=== PATIENT | female | born 1995 | race Caucasian/White ===

== ENCOUNTER 2018-05-07 16:49 | Inpatient (IN) | payer OTHER ==
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
[2018-05-07 17:54] LABS: Hematocrit 34 % (35-47); Hemoglobin 10.7 g/dl (12.0-16.0); Mean Corpuscular HGB Conc 32 g/dl (31-36); Mean Corpuscular Hemoglobin 24 pg (27-31); Mean Corpuscular Volume 74 fL (80-97); Mean Platelet Volume 8.1 um3 (7.4-10.4); Platelet Count 322 10^3/ul (150-450); Red Blood Count 4.57 10^6/ul (4.00-5.40); Red Cell Distribution Width 18 % (10.5-15); White Blood Count 7.7 10^3/ul (3.5-10.8)
[2018-05-07 18:00] LABS: ALT 8 U/L (7-52); AST 15 U/L (13-39); Albumin 4.7 g/dL (3.2-5.2); Albumin/Globulin Ratio 1.5 (1-3); Alkaline Phosphatase 29 U/L (34-104); Anion Gap 11 mmol/L (2-11); BUN/Creatinine Ratio 15.2 (8-20); Blood Urea Nitrogen 10 mg/dL (6-24); CO2 Carbon Dioxide 22 mmol/L (22-32); Calcium 9.4 mg/dL (8.6-10.3); Chloride 104 mmol/L (101-111); Globulin 3.2 g/dL (2-4); Glucose 88 mg/dL (70-100); Potassium 3.9 mmol/L (3.5-5.0); Sodium 137 mmol/L (135-145); Total Protein 7.9 g/dL (6.4-8.9)
[2018-05-07 18:06] LABS: HCG Pregnancy < 0.60 mIU/mL
[2018-05-07 18:25] LABS: ABS Basophils 0.1 10^3/ul (0-0.2); ABS Eosinophils 0 10^3/ul (0-0.6); ABS Lymphocytes 1.8 10^3/ul (1.0-4.8); ABS Monocytes 0.7 10^3/ul (0-0.8); ABS Neutrophils 5.1 10^3/ul (1.5-7.7); ABS Nucleated RBC 0 10^3/ul; Eosinophil % 0.3 % (0-6); Lymphocyte % 23.6 % (25-47); Nucleated Red Blood Cells % 0
[2018-05-07 19:13] LABS: Acetaminophen < 15 mcg/mL; Alcohol < 10 mg/dL (<10); Salicylate < 2.50 mg/dL (<30)
[2018-05-07 21:59] LABS: Urine Appearance Cloudy; Urine Bacteria Absent (Absent); Urine Bilirubin Negative (Negative); Urine Blood 1+ (Negative); Urine Color Yellow; Urine Glucose Negative (Negative); Urine Ketones 1+ (Negative); Urine Nitrite Negative (Negative); Urine Protein Negative (Negative); Urine Red Blood Cell 2+(6-10/hpf) (Absent); Urine Specific Gravity 1.013 (1.010-1.030); Urine Urobilinogen Positive (Negative); Urine White Blood Cell 3+(>20/hpf) (Absent)
[2018-05-07 22:05] LABS: Barbiturates Urine Screen None Detected (None Detect); Benzodiazepine Urine Screen None Detected (None Detect); Urine Cannabinoids Screen None Detected (None Detect)
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
[2018-05-07 22:34] LABS: Calcium 9.2 mg/dL (8.6-10.3); EGFR Non-African American 105.4 (>60); Potassium 3.8 mmol/L (3.5-5.0)
[2018-05-08 12:36] VITALS: BP 134/87
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
== END 2018-05-08 17:31 | disposition home or self-care (01) | DRG 882 ==
LOC: ED 16:49 → BSU 05-08 09:38
PROVIDERS: ADMIT Psychiatry & Neurology Psychiatry; ATTEND Psychiatry & Neurology Psychiatry
DX: F43.29 Adjustment disorder with other symptoms (principal); T49 Poisoning by, adverse effect of and underdosing of topical agents primarily affecting skin and mucous membrane and by ophthalmological, otorhinorlaryngological and dental drugs; Y92.009 Unspecified place in unspecified non-institutional (private) residence as the place of occurrence of the external cause; Z81.1 Family history of alcohol abuse and dependence; Z83.79 Family history of other diseases of the digestive system
CPT/HCPCS: 36415; 80048; 80053; 80307; 80320; 80329; 81003; 81015; 83605; 83930; 84702; 85025; 87086; 93005; 99238; 99284; G0480

== ENCOUNTER 2018-08-30 14:24 | Emergency (ER) | payer OTHER ==
[2018-08-30 16:32] LABS: Urine Appearance Cloudy; Urine Bilirubin Negative (Negative); Urine Blood Negative (Negative); Urine Color Yellow; Urine Glucose Negative (Negative); Urine Ketones 1+ (Negative); Urine Nitrite Negative (Negative); Urine Protein Negative (Negative); Urine Specific Gravity 1.025 (1.010-1.030); Urine Urobilinogen Negative (Negative)
--- NOTE | 2018-08-30 16:36 | ED ---
GI/ HPI - HPI Summary HPI Summary: A 23 y/o female presents to [facility] with a chief complaint of 3 episodes of vomiting since 13:00 08/30/18. Per triage note, "Headache since 1230 and vomited 3x since then. ABD pain to central ABD. Sensitivity to smells". The patient reports a mild headache and reports that her abdominal pain started before her vomiting. She denies any loss of appetite. In addition to the symptoms noted in the triage note she c/o diarrhea, nausea and chills. She denies any cough. Her LNMP was in mid-August 2018. She denies any chance of . She did not get her flu shot. She denies a Hx of migraines but claims that she has gotten headaches in general. She denies any current abdominal pain. - History of Current Complaint Chief Complaint: EDAbdPain Time Seen by Provider: 08/30/18 16:14 Stated Complaint: VOMITING Hx Obtained From: Patient Onset/Duration: Started Hours Ago, Still Present Timing: Intermittent - 3 episodes Severity: Moderate Current Severity: Moderate Pain Intensity: 4 - out of 10 Location of Pain: Umbilical Pain Characteristics: Unable to describe Associated Signs and Symptoms: Positive: Nausea, Diarrhea. Negative: Fever, Chills, Abdominal Pain, Cough - Allergy/Home Medications Allergies/Adverse Reactions: Allergies Allergy/AdvReac Type Severity Reaction Status Date / Time No Known Allergies Allergy Verified 08/30/18 14:31 PMH/Surg Hx/FS Hx/Imm Hx Sensory History: Reports: Hx Contacts or Glasses, Hx Hearing Aid Denies: Hx Legally Blind, Hx Deafness Opthamlomology History: Reports: Hx Contacts or Glasses Denies: Hx Legally Blind Psychiatric History: Reports: Hx Depression Denies: Hx Eating Disorder, Hx of Violent Episodes Against Others - Surgical History Surgery Procedure, Year, and Place: Ectopian surgery 2017. R Hand surgery 2012 Infectious Disease History: No Infectious Disease History: Denies: Traveled Outside the [place] in Last 30 Days - Social History Alcohol Use: Rare Alcohol Amount: "1 glass of wine if I'm eating steak." Substance Use Type: Reports: None Smoking Status (MU): Never Smoked Tobacco Review of Systems Negative: Fever, Chills Negative: Cough Positive: Vomiting, Diarrhea, Nausea. Negative: Abdominal Pain - but had abd pain FIELD SERVICE CONSULTANT All Other Systems Reviewed And Are Negative: Yes Physical Exam - Summary Physical Exam Summary: GENERAL: Patient is a well-developed and nourished F who is lying comfortable in the stretcher. Patient is not in any acute respiratory distress. HEAD AND FACE: Normocephalic EYES: PERRLA, EOMI x 2. EARS: Hearing grossly intact. MOUTH: Oropharynx within normal limits. NECK: Supple, trachea is midline, no adenopathy, no JVD, no carotid bruit. CHEST: Symmetric, no tenderness at palpation LUNGS: Clear to auscultation bilaterally. No wheezing or crackles. CVS: Regular rate and rhythm, S1 and S2 present, no murmurs or gallops appreciated. ABDOMEN: Soft, Tender around periumbilical region, no TTP at McBurney's point. Trotter is negative. Bowel sounds are normal. No abdominal abnormal pulsations. EXTREMITIES: Full ROM in all major joints, no edema, no cyanosis or clubbing. NEURO: Alert and oriented x 3. No acute neurological deficits. Speech is normal and follows commands. SKIN: Dry and warm Triage Information Reviewed: Yes Vital Signs On Initial Exam: Initial Vitals Temp Pulse Resp BP Pulse Ox 99.3 F 89 17 128/81 99 08/30/18 14:28 08/30/18 14:28 08/30/18 14:28 08/30/18 14:28 08/30/18 14:28 Vital Signs Reviewed: Yes Diagnostics - Vital Signs Vital Signs Temp Pulse Resp BP Pulse Ox 08/30/18 16:25 98 98 08/30/18 16:24 95 123/76 97 08/30/18 14:28 99.3 F 89 17 128/81 99 - Laboratory Lab Results: Lab Results 08/30/18 Range/Units 16:21 Urine Color Yellow Urine Appearance Cloudy Urine pH 5.0 (5-9) Ur Specific [place] 1.025 (1.010-1.030) Urine Protein Negative (Negative) Urine Ketones 1+ A (Negative) Urine Blood Negative (Negative) Urine Nitrate Negative (Negative) Urine Bilirubin Negative (Negative) Urine Urobilinogen Negative (Negative) Ur Leukocyte Esterase Negative (Negative) Urine Glucose Negative (Negative) Result Diagrams: 08/30/18 15:22 08/30/18 15:22 Lab Statement: Any lab studies that have been ordered have been reviewed, and results considered in the medical decision making process. Re-Evaluation - Re-Evaluation First Eval Re-Evaluation Time: 18:25 Change: Improved Comment: Patient is ready for discharge. GIGU Course/Dx - Course Course Of Treatment: A 23 y/o female presents to [facility] with a chief complaint of 3 episodes of vomiting since 13:00 08/30/18. Workup is remarkable. The physical exam revealed that she was tender around her periumbilical region. Lab results obtainted. Urine ketones 1+. In the ED course the patient was given zofran PO. Influenza A and Influenza B are negative. Reviewed labs and her white count was negatives. Her Symptoms are likely secondary to gastroenteritis. Suspision was very low for appendicitis. She is able to tolerate PO without difficulty. I discussed results with patient and she reports feeling better. She is hemodynamically stable and safe for discharge. Strict return precautions given in particular precautions about appendicitis and she will otherwise follow up with her PCP. The patient will be discharged. She is agreeable with this plan. - Diagnoses Provider Diagnoses: Gastroenteritis Discharge - Sign-Out/Discharge Documenting (check all that apply): Patient Departure - AL Patient Received Moderate/Deep Sedation with Procedure: No - Discharge Plan Condition: Stable Disposition: HOME Referrals: [facility] [Outside] (1-3 days) Additional Instructions: Follow up with your primary care physician in 1-3 days. RETURN TO THE EMERGENCY DEPARTMENT FOR CHANGING OR WORSENING SYMPTOMS. - Billing Disposition and Condition Condition: STABLE Disposition: Home - Attestation Statements Document Initiated by Courtneyibe: Yes Documenting Scribe: Clayton Madrigal Provider For Whom Radha is Documenting (Include Credential): Eunice Grant MD Scribe Attestation: IClayton scribed for Eunice Grant MD on 08/30/18 at 1847. Scribe Documentation Reviewed: Yes Provider Attestation: The documentation as recorded by the Clayton juarez accurately reflects the service I personally performed and the decisions made by me, Ashley Grant MD Status of Scribe Document: Viewed
[2018-08-30 16:41] LABS: ABS Basophils 0 10^3/ul (0-0.2); ABS Eosinophils 0 10^3/ul (0-0.6); ABS Lymphocytes 0.4 10^3/ul (1.0-4.8); ABS Monocytes 0.7 10^3/ul (0-0.8); ABS Neutrophils 8.4 10^3/ul (1.5-7.7); ABS Nucleated RBC 0 10^3/ul; Eosinophil % 0.3 %; Hematocrit 36 % (35-47); Hemoglobin 11.3 g/dl (12.0-16.0); Lymphocyte % 4.4 %; Mean Corpuscular HGB Conc 32 g/dl (31-36); Mean Corpuscular Hemoglobin 24 pg (27-31); Mean Corpuscular Volume 76 fL (80-97); Nucleated Red Blood Cells % 0; Platelet Count 345 10^3/ul (150-450); Red Blood Count 4.72 10^6/ul (4.00-5.40); Red Cell Distribution Width 17 % (10.5-15); White Blood Count 9.5 10^3/ul (3.5-10.8)
[2018-08-30 16:48] LABS: ALT 18 U/L (7-52); AST 13 U/L (13-39); Albumin 4.6 g/dL (3.2-5.2); Albumin/Globulin Ratio 1.5 (1-3); Alkaline Phosphatase 28 U/L (34-104); Anion Gap 7 mmol/L (2-11); BUN/Creatinine Ratio 22.8 (8-20); Blood Urea Nitrogen 13 mg/dL (6-24); C Reactive Protein < 1.00 mg/L (<8.01); CO2 Carbon Dioxide 23 mmol/L (22-32); Calcium 8.9 mg/dL (8.6-10.3); Chloride 106 mmol/L (101-111); EGFR Non-African American 131.4 (>60); Globulin 3.1 g/dL (2-4); Glucose 122 mg/dL (70-100); HCG Pregnancy < 0.60 mIU/mL; Potassium 4.1 mmol/L (3.5-5.0); Sodium 136 mmol/L (135-145); Total Protein 7.7 g/dL (6.4-8.9)
[2018-08-30] MEDS ORDERED: Ondansetron ODT TAB* 4 MG PO ONE (17:00)
[2018-08-30] MEDS ORDERED: Ondansetron ODT TAB* 4 MG ONE (17:02)
[2018-08-30 18:13] LABS: Influenza A Molecular NEGATIVE (Negative); Influenza B Molecular NEGATIVE (Negative)
[2018-08-30 18:33] VITALS: BP 98/60
== END 2018-08-30 18:33 | disposition home or self-care (01) ==
LOC: ED 14:24
DX: K52.9 Noninfective gastroenteritis and colitis, unspecified (principal); R11.0 Nausea; R19.7 Diarrhea, unspecified
CPT/HCPCS: 36415; 80053; 81003; 83605; 83690; 84702; 85025; 86140; 99283; A9270-GY